=== PATIENT | female | born 1995 ===

== ENCOUNTER 2025-02-16 13:46 | Emergency (ER) | payer BC ==
[2025-02-16] MEDS: Acetaminophen/oxyCODONE 325-5 MG Tab PO STA (14:16)
[2025-02-16] MEDS: Acetaminophen/oxyCODONE 325-5 MG Tab PO ONE (19:30)
== END 2025-02-16 19:42 | disposition home or self-care (01) ==
LOC: MW.ED 13:46
DX: S62.231A Other displaced fracture of base of first metacarpal bone, right hand, initial encounter for closed fracture (principal); B35.3 Tinea pedis; Z88.0 Allergy status to penicillin; Z79.899 Other long term (current) drug therapy; F17.210 Nicotine dependence, cigarettes, uncomplicated; W23.1XXA Caught, crushed, jammed, or pinched between stationary objects, initial encounter; Y93.89 Activity, other specified
CPT/HCPCS: 29125; 73090; 73110; 73130; 99283; A9270; 99282